=== PATIENT | female | born 1960 | race Caucasian/White ===

== ENCOUNTER 2022-05-14 04:09 | Emergency (ER) | payer OTHER, SELFPAY ==
[2022-05-14 04:14] VITALS: BP 117/87; PULSE 73; RESP 16; TEMP 36.3; O2SAT 100
[2022-05-14 04:16] VITALS: BP 117/87
[2022-05-14 04:29] LABS: Basophils Absolute Auto 0.1 K/mm3 (0.0-0.1); Basophils Percent Auto 0.7 % (0.2-1.2); Eosinophils Absolute Auto 0.1 K/mm3 (0-0.3); Hematocrit 39.6 % (37.0-47.0); Hemoglobin 12.7 g/dL (12.0-15.0); Immature Granulocyte Absolute 0.04 K/mm3 (0.00-0.031); Immature Granulocyte Percent A 0.3 % (0-0.5); Lymphocytes Absolute Auto 0.75 K/mm3 (0.9-3.2); Lymphocytes Percent Auto 6.1 % (18.3-44.2); Mean Corpuscular HGB Conc 32.1 g/dl (32-36); Mean Corpuscular Hemoglobin 27.3 pg (26-34); Mean Platelet Volume 9.4 fl (7.4-10.4); Monocytes Absolute Auto 0.8 K/mm3 (0.1-0.6); Monocytes Percent Auto 6.8 % (2.6-8.5); Neutrophils Absolute Auto 10.4 K/mm3 (1.3-6.7); Neutrophils Percent Auto 85.1 % (45.5-73.1); Platelet Count Result 327 k/mm3 (150-375); Red Blood Count 4.66 M/mm3 (4.2-5.4); Red Cell Distribution Width 20.6 % (11.5-14.5); White Blood Count 12.2 K/mm3 (4.5-10.0)
[2022-05-14 04:32] LABS: Appearance Urine Clear (Clear); Bilirubin Urine 2+ (Negative); Blood Urine Negative (Negative); Color Urine Yellow (Yellow); Glucose Urine UA Negative (Negative); Ketones Urine 4+ mg/dL (Negative); Leukocyte Esterase Ur 2+ LEU/UL (Negative); Nitrate Urine Negative (Negative); Protein Urine 1+ mg/dL (Negative)
[2022-05-14 04:34] LABS: Amorphous Sediment Urine Few; Bacteria Urine Trace /hpf; Mucus Urine Rare /lpf; Squamous Epithelial Cell Urine Rare /hpf (Few)
[2022-05-14 04:35] LABS: Add Urine Microscopic? YES
[2022-05-14 04:38] LABS: Alanine Aminotransferase 38 U/L (6-35); Albumin Level 5.3 g/dL (3.5-5.1); Alkaline Phosphatase 61 U/L (38-126); Anion Gap 10 mmol/L (8-16); Aspartate Amino Transferase 59 U/L (14-36); Bilirubin,Total 0.6 mg/dL (0.2-1.3); Blood Urea Nitrogen 17 mg/dL (7-17); Calcium 10.1 mg/dL (8.4-10.2); Carbon Dioxide 29 mmol/L (22-30); Chloride 98 mmol/L (98-107); Estimated CRCL calculation 64 ml/min; Estimated Glomerular Filt Rate > 60; Glucose 169 mg/dL (65-110); Lipase 62 U/L (23-300); Potassium 3.5 mmol/L (3.4-5.0); Sodium 137 mmol/L (137-145)
[2022-05-14 04:45] VITALS: BP 132/73
--- NOTE | 2022-05-14 04:52 | ED.NAVMDI ---
HPI - Nausea/Vomiting/Diarrhea General Chief complaint: Nausea/Vomiting/Diarrhea Stated complaint: Diarrhea / Vomiting since 2229 Time Seen by Provider: 05/14/22 04:37 History of Present Illness HPI Narrative: 61-year-old female presents emergency room secondary to vomiting, abdominal cramps, and diarrhea. All started after going to [employer] [facility] and eating last night. However her is here and he is not sick. She states she gets abdominal cramps and then afterwards has to go to the bathroom and has vomiting associated with it. Been going on throughout the night. They would do to leave this morning to drive out to [facility] to meet with her daughter. She is had no significant ongoing medical issues. Related Data Allergies Allergy/AdvReac Type Severity Reaction Status Date / Time No Known Allergies Allergy Verified 05/14/22 04:20 Review of Systems Review of Systems: CONSTITUTIONAL: Denies fever, chills, or sweats. EYES: Denies visual changes, redness, or discharge. ENT: Denies rhinorrhea, congestion, sore throat, or otalgia. CARDIOVASCULAR: Denies chest pain, palpitations, or edema. RESPIRATORY: Denies cough or dyspnea. GASTROINTESTINAL: Abdominal cramping with associated vomiting and diarrhea. GENITOURINARY: Denies dysuria or hematuria. SKIN: Denies rash or itching. MUSCULOSKELETAL: Denies back pain, joint pain, or myalgia. NEUROLOGIC: Denies headache, numbness, or weakness. PSYCHIATRIC: Denies anxiety or depression. Exam Narrative: APPEARANCE: Well appearing, no pain or distress, well-nourished. Head Normocephalic and atraumatic. EYES: PERRLA/EOMI, conjunctivae clear. NOSE: Normal with no drainage EARS:TMS clear with Mancuso, with good light reflex. THROAT: Pharynx clear, no exudate. NECK: Supple. No adenopathy, no masses. RESPIRATORY: Airway patent, respirations nonlabored. Clear to auscultation bilaterally, no rales, rhonchi, wheezing. CARDIOVASCULAR: Regular rate and rhythm without murmurs, rubs, or gallops. ABDOMINAL: Soft with hyperactive bowel sounds present nonspecific diffuse tenderness. Musculoskeletal: Moves all extremities. Strength/ROM intact, No edema, No calf tenderness. NEURO: Alert. Cranial nerves II through XII intact. Normal gait. Good coordination. Nonfocal examination. SKIN:: Warm, dry. Normal Color PSYCHIATRIC: Normal affect/mood, normal interaction Course Course Emergency Course: IV was established and given a liter of fluids intravenously. Also given Zofran 4 mg and Bentyl. Reevaluated the patient she is feeling much better. Vital Signs Vital signs: Vital Signs Temperature 97.4 F L 05/14/22 04:14 Pulse Rate 73 05/14/22 04:14 Respiratory Rate 16 05/14/22 04:14 Blood Pressure 117/87 05/14/22 04:14 Pulse Oximetry 100 05/14/22 04:14 Oxygen Delivery Room Air 05/14/22 04:14 Temperature 97.4 F L 05/14/22 04:14 Pulse Rate 62 05/14/22 05:15 Respiratory Rate 18 05/14/22 05:15 Blood Pressure 127/71 05/14/22 05:15 Pulse Oximetry 100 05/14/22 05:15 Oxygen Delivery Room Air 05/14/22 04:14 MDM - Nausea/Vomiting/Diarrhea MDM Narrative Medical decision making narrative: Urinalysis was obtained and even though the patient does not have any obvious signs and symptoms consistent with urinary tract infection there is concern that she does have a urinary tract infection. I discussed this with her and we will go ahead and put her on a 3-day course of antibiotics. They are in the process of leaving to go to [place] and I told her she should be able to make that trip. She just needs to stick with clear liquids for the next 12 to 24 hours then advance her diet back as tolerated. She is given a prescription for Bactrim DS for 3 days. Zofran ODT 4 mg tablets every 6 hours as needed. As well as Levsin 0.125 mg sublingual tablets as needed for abdominal cramps. Lab Data Result diagrams: 05/14/22 04:22 05/14/22 04:22 Labs: Lab Results
[2022-05-14] MEDS: SODIUM CHLORIDE 0.9% IV 1,000 ML 999 ML IV CONT (04:54)
[2022-05-14] MEDS: ONDANSETRON INJ 4 MG/2 ML VIAL IV PUSH (04:55)
[2022-05-14] MEDS: DICYCLOMINE HCL INJ 20 MG/2 ML VIAL IM (04:59)
[2022-05-14 05:01] VITALS: BP 110/54
[2022-05-14 05:15] VITALS: BP 127/71; PULSE 62; RESP 18; O2SAT 100
[2022-05-14 06:04] VITALS: BP 116/72; PULSE 70; RESP 18; O2SAT 100
== END 2022-05-14 06:05 | disposition home or self-care (01) ==
PROVIDERS: Emergency Provider Emergency Medicine
DX: K52.9 Noninfective gastroenteritis and colitis, unspecified (principal); N39.0 Urinary tract infection, site not specified
CPT/HCPCS: 36415; 80053; 81001; 81025; 83690; 85025; 96361; 96372; 96374; 99284; J0500; J2405; J7030

== ENCOUNTER 2025-06-11 19:38 | Emergency (ER) | payer OTHER, SELFPAY ==
--- OUTSIDE RECORDS SUMMARY | 2025-06-11 19:41 | XMS_ITS | Clinical Summary ---
Author Organization [facility] Address [address] [place] [address] Care Team Providers Care Quality Control Expert Name Role Phone Yon Sommer MD Primary Care Provider [phone] Source Comments [facility],non-owned Affiliates and Associated Physician Practices is amultiple site organization consisting of ambulatory clinics and hospital sitesin [place], [place], [place] and [place]. This disclosure is being madepursuant to the Care Everywhere program and may not contain all information available regarding this patient. Last updated 18.[facility] Allergies Active Allergy Reactions Criticality Noted Date Comments Penicillins Other,Rash Medium 03/04/2015 Yeast infection Sulfa Drugs 12/06/2003 Medications * Be aware that medications may not be up to date on this document. Alwaysverify current medications with the patient. fluticasone-lul nterol (BREO ELLIPTA) 200-25 MCG/INH inhalerIndicatio ns:Moderate persistent asthma without complication (HCC) Inhale 1 (one) puff by mouth once daily 30 Each 11 2 Active montelukast (SINGULAIR) 10 MG tablet Take 1 (one) tablet by mouth once daily 90 tablet 3 2 Active albuterol HFA (Proventil; Ventolin; Proair) 108 (90 Base) MCG/ACT inhalerIndicatio ns:Moderate persistent asthma without complication (HCC) USE 2 INHALATIONS EVERY 4 HOURS NEEDED FOR SHORTNESS OF BREATH, WHEEZING OR COUGH. NEED TO BE SEEN (HAS APPT IN MAY) FOR MORE REFILLS. 17 g 4 3 Active Active Problems Problem Noted Date Diagnosed Date Moderate persistent asthma without complication 04/02/2021 Allergic rhinitis 07/03/2015 Overview (04/02/2021): Only bothers in Spring. Flonase then works great. IgE 09/2020: trace sensitivities to trees, molds, grass and also sensitive to ragweed. Tear, knee, medial meniscus 12/24/2011 Immunizations Immunization Administration Dates Next Due INFLUENZA VACCINE, QUADR. (A FLURIA, FLUZONE QUADRIVALENT; 6MO+) (IIV4) 06/25/2019,07/03/2018 Social History Tobacco Use Types Packs/Day Years Used Date Smoking Tobacco: Never Smokeless Tobacco: Never Alcohol Use Standard Drinks/Week Comments Yes 0 (1 standard drink = 0.6 oz pur e alcohol) PHQ-2 Answer Date Recorded PHQ2 TOTAL SCORE 0 10/23/2021 Comments Unknown Sex and Gender Information Value Date Recorded Sex Assigned at Not on file Legal Sex Female 2:04 AM CDT Gender Identity Not on file Sexual Orientation Not on file Last Filed Vital Signs Vital Sign Reading Time Taken Comments Blood Pressure 111/74 04/03/2015 5:45 PM CDT Pulse 68 04/03/2015 5:45 PM CDT Temperature 36.6 C (97.8 F) 03/19/2013 3:05 PM CDT Respiratory Rate 18 04/03/2015 5:45 PM CDT Oxygen Saturation 100% 04/03/2015 5:45 PM CDT Inhaled Oxygen Concentration - - Weight 55.3 kg (122 lb) 10/23/2021 11:50 AM BRAND ACTIVATION MANAGER Height 172.7 cm (5' 8) 10/23/2021 11:50 AM BRAND ACTIVATION MANAGER Body Mass Index 18.55 10/23/2021 11:50 AM BRAND ACTIVATION MANAGER Plan of Treatment Health Maintenance Due Date Last Done Comments COLOGWENDYRD (AGES 45-75) - COLON CA SCREENING 1962 COLON MONITORING 1962 COLONOSCOPY - COLON CA SCREENING 1962 CT COLONOGRAPHY - COLON CA SCREENING 1962 Colorectal Cancer Screening 1962 FIT - COLON CA SCREENING 1962 FLEX SIG - COLON CA SCREENING 1962 HIV SCREENING 1977 HEPATITIS C SCREENING 05/11/1980 DTAP/TDAP/TD VACCINES (1 - Tdap) 1981 PNEUMOCOCCAL VACCINE 50+ (1 of 2 - PCV) 1981 ZOSTER VACCINE (1 of 2) 2012 PAP SMEAR 11/28/2012 11/28/2009, 11/02/2006 Respiratory Syncytial Virus (RSV) Vaccine Pt: or over 60 yrs (1 - Risk 60-74 years 1-dose series) 2022 MAMMOGRAM 09/09/2022 09/09/2020 LIPID TESTING 07/10/2023 07/10/2018, 07/03, 07/09/2016, Additional history exists DEPRESSION SCREENING 10/03/2024 COVID-19 VACCINE ( season) 2025 07/13/2021, 01/06/2021, 12/16/2020 INFLUENZA VACCINE (#1) 2025 9, 07/03/2018, 07/22/2017, Additional history exists HEPATITIS B VACCINE Aged Out No longe r eligible based on patient's age to complete this topic HIB VACCINE Aged Out No longer eligi ble based on patient's age to complete this topic HPV VACCINE Aged Out No longer eligi ble based on patient's age to complete this topic MENINGOCOCCAL (Group B) VACCINE SHARED DECISION-MAKING Aged Out No longer eligible based on patient's age to complete this topic MENINGOCOCCAL GROUPS A/C/Y/W VACCINE Aged Out No longer eligible based on patient's age to complete this topic Procedures Procedure Name Priority Date/Time Associated Diagnosis Comments LIPID PROFILE Routine 07/10/2018 8:59 AM CDT PAP THINPREP ([place]) Routine 11/28/2009 12: 00 AM BRAND ACTIVATION MANAGER from Last 3 Months or Most Recently Relevant to Health Maintenance Results * LIPID PROFILE (07/10/2018 8:59 AM CDT) Cholesterol Total 166 <200 mg/dL 07/10/2018 10:44 AM [facility] HDL 69 >40 mg/dL 07/10/2018 10:44 AM [facility] Comment: ATP III Classification of HDL Cholesterol: <40 mg/dL: Considered a major risk factor. >60 mg/dL: Considered a negative risk factor. LDL Calculated 83 <100 mg/dL 07/10/2018 10:44 AM [facility] Comment: ATP III Classification of LDL Cholesterol: <100 mg/dL: Optimal 100 - 129 mg/dL: Near Optimal/Above Optimal 130 - 159 mg/dL: Borderline High 160 - 189 mg/dL: High >190 mg/dL: Very High Triglycerides 71 <150 mg/dL 07/10/2018 10:44 AM [facility] Comment: ATP III Classification of Triglycerides: <150 mg/dL: Normal 150 - 199 mg/dL: Borderline High 200 - 400 mg/dL: High >500 mg/dL: Very High Blood BLOOD SPECIMEN / Unknown Lab Venipuncture / Unknown 07/10/2018 8:59 AM CDT 07/10/2018 10:21 AM CDT Ordering Provider Unlisted LAB - CHEMISTRY OR DERABLES Final Result Performing Organization Address City/State/[facility] Co de Phone Number [address] [phone] * PAP THINPREP ([place]) (11/28/2009 12:00 AM BRAND ACTIVATION MANAGER) Judicial Assistant Report CASE: [id number] PATIENT: CINDY REYNOLDS Referring Physician: [id number]: JERSON HERNÁNDEZ Signing Pathologist: ROQUEP: DIONE MEZA(ASCP) Signout Date: 12/01/2009 ADEQUACY:Satisfacto ry for evaluation. Transformation zone component present. NARRATIVE DESCRIPTION:Negativ e for intraepithelial lesion or malignancy. 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 [facility] 11/28/2009 12/01/2009 Historical Provider LAB - BODY FLUID ORDERABL ES Final Result [facility] [address] [address] from Last 3 Months or Most Recently Relevant to Health Maintenance Insurance [facility] Care Teams Quality Control Expert Relationship Specialty [place] [id number] [phone] PCP - General Family Medicine 09/28/16
--- OUTSIDE RECORDS SUMMARY | 2025-06-11 19:41 | XMS_ITS | Encounter Summary ---
Author Organization [facility] Address [address] [place] [address] Care Team Providers Care Apiculture Teacher Name Role Phone Yon Sommer MD Primary Care Provider [phone] Reason for Visit * Reason Comments Refill Request Encounter Details Date Type Department Care Team (Late st Contact Info) Description 06/04/2024 Refill [facility] - Allergy [address] [facility] [place] [id number] Teresa Florian MD [address] [place] [address] Refill Request Social History Tobacco Use Types Packs/Day Years [...] on file Sexual Orientation Not on file documented as of this encounter Miscellaneous Notes * Telephone Encounter - Jade Wayne RN - 06/05/2024 2:30 PM CDT Refill Request Cindy Reynolds BOWEN: 10/23/2021 NOV scheduled: Visit date not found LRF: 07/11/2023 Qty Disp: 17g # of refills: 4 Allergies: Allergies Allergen Reactions Penicillins Other and Rash Yeast infection Sulfa Drugs Pended Medication Order: Requested Prescriptions Pending Prescriptions Disp Refills albuterol HFA (Proventil; Ventolin; Proair) 108 (90 Base) MCG/ACT inhaler [Pharmacy Med Name: ALBUTEROL HFA INHALER 8.5GM 90MCG] 17 g 4 Sig: USE 2 INHALATIONS EVERY 4 HOURS NEEDED FOR SHORTNESS OF BREATH, WHEEZING OR COUGH. NEED TO BE SEEN (HAS APPT IN MAY) FOR MORE REFILLS. documented in this encounter Plan of Treatment Not on file documented as of this encounter Visit Diagnoses Diagnosis Moderate persistent asthma without complication (HCC) Unspecified asthma documented in this encounter Care Teams Apiculture Teacher Relationship Specialty [place] [id number] [phone] PCP - General Family Medicine 09/28/16 documented as of this encounter
--- OUTSIDE RECORDS SUMMARY | 2025-06-11 19:41 | XMS_ITS | Encounter Summary ---
Author Organization [facility] Address [address] [facility] [place] [address] Care Team Providers Care Chief Station Engineer Name Role Phone Yon Sommer MD Primary Care Provider [phone] Encounter Details Date Type Department Care Team (Late st Contact Info) Description 07/07/2018 Lab Requisition [facility] [address] [place] [phone] Unlisted, Ordering Provider, Social History Tobacco Use Types Packs/Day Years Used Date Smoking Tobacco: Never Smokeless Tobacco: Never Alcohol Use Standard Drinks/Week Comments Yes 0 (1 standard drink = 0.6 oz pur e alcohol) Comments Unknown Sex and Gender Information Value Date Recorded Sex Assigned at Not on file Legal Sex Female 2:04 AM CDT Gender Identity Not on file Sexual Orientation Not on file documented as of this encounter Plan of Treatment Not on file documented as of this encounter Procedures Procedure Name Priority Date/Time Associated Diagnosis Comments GLUCOSE VITALITY Routine 07/10/2018 8:59 AM CDT HEMOGLOBIN A1C Routine 07/10/2018 8:59 AM CDT LIPID PROFILE Routine 07/10/2018 8:59 AM CDT documented in this encounter Results * HEMOGLOBIN A1C (07/10/2018 8:59 AM CDT) Hemoglobin A1c 5.8 4.4 - 6.3 % 07/10/2018 12:51 PM CDT [facility] Estimated Average Glucose 120 mg/dL 07/10/2018 12:51 PM CDT [facility] Comment: HbA1c Interpretation: Treatment target values recommended by ADA and other clinical organizations should be used to evaluate metabolic control in patients. Treatment Target Values: Normal : < 5.7% Pre-diabetes: 5.7-6.4% Diabetes: Equal to or greater than 6.5% Reference: [place] [employer] Standards of Care in Diabetes -2014 In patients 70 years and older consider HbA1c target range of 7.0-7.5% Reference: Diabetes Mellitus in Older People: Position Statement on behalf of the International Association of Gerontology and Geriatrics (IAGG), the Diabetes Working Alliance Party for Older People (EDWPOP), and the International Task Force of Experts in Diabetes. Niraj Boogie, et al. J [place] [employer] Association. 2012 Test results diagnostic of diabetes should be repeated for confirmation. The Tosoh G8 assay for the measurement of HbA1c is a National Glycohemoglobin Standardization Program (NGSP)certified method. Results for patients with HbE disease should be interpreted with caution as this hemoglobinopathy has been shown to interfere with the Tosoh G8 assay. Blood BLOOD SPECIMEN / Unknown Lab Venipuncture / Unknown 07/10/2018 8:59 AM CDT 07/10/2018 10:21 AM CDT us Ordering Provider Unlisted MD LAB - CHEMISTRY OR DERABLES Final Result [address] [phone] * LIPID PROFILE (07/10/2018 8:59 AM CDT) Cholesterol Total 166 <200 mg/dL 07/10/2018 10:44 AM CDT [facility] HDL 69 >40 mg/dL 07/10/2018 10:44 AM CDT [facility] Comment: ATP III Classification of HDL Cholesterol: <40 mg/dL: Considered a major risk factor. >60 mg/dL: Considered a negative risk factor. LDL Calculated 83 <100 mg/dL 07/10/2018 10:44 AM CDT [facility] Comment: ATP III Classification of LDL Cholesterol: <100 mg/dL: Optimal 100 - 129 mg/dL: Near Optimal/Above Optimal 130 - 159 mg/dL: Borderline High 160 - 189 mg/dL: High >190 mg/dL: Very High Triglycerides 71 <150 mg/dL 07/10/2018 10:44 AM CDT [facility] Comment: ATP III Classification of Triglycerides: <150 mg/dL: Normal 150 - 199 mg/dL: Borderline High 200 - 400 mg/dL: High >500 mg/dL: Very High Blood BLOOD SPECIMEN / Unknown Lab Venipuncture / Unknown 07/10/2018 8:59 AM CDT 07/10/2018 10:21 AM CDT Ordering Provider Unlisted MD LAB - CHEMISTRY OR DERABLES Final Result [address] [phone] * GLUCOSE VITALITY (07/10/2018 8:59 AM CDT) Glucose 85 70 - 115 mg/dL 07/10/2018 10:43 AM CDT [facility] Blood BLOOD SPECIMEN / Unknown Lab Venipuncture / Unknown 07/10/2018 8:59 AM CDT 07/10/2018 10:21 AM CDT Ordering Provider Unlisted MD LAB - CHEMISTRY OR DERABLES Final Result [address] [phone] documented in this encounter Visit Diagnoses Not on filedocumented in this encounter Care Teams Chief Station Engineer Relationship Specialty [place] [address] [phone] PCP - General Family Medicine 09/28/16 documented as of this encounter
[2025-06-11 19:43] VITALS: BP 141/79; PULSE 60; RESP 15; TEMP 36.9; O2SAT 100
[2025-06-11 20:07] LABS: Hematocrit 42.0 % (37.0-47.0); Hemoglobin 13.7 g/dL (12.0-15.0); Immature Granulocyte Percent A 0.4 % (0-0.5); Lymphocytes Absolute Auto 0.52 K/mm3 (0.9-3.2); Mean Corpuscular HGB Conc 32.6 g/dl (32-36); Mean Corpuscular Hemoglobin 30.0 pg (26-34); Mean Corpuscular Volume 92.1 fl (80-100); Nucleated Red Blood Cells Absolute Auto 0.000 K/mm3 (0.0-0.012); Nucleated Red Blood Cells Perc 0.0 % (0.0-0.2); Platelet Count Result 310 k/mm3 (150-375); Red Blood Count 4.56 M/mm3 (4.2-5.4); White Blood Count 11.8 K/mm3 (4.5-10.0)
--- NOTE | 2025-06-11 20:10 | ED_ITS ---
HPI - General Adult General Chief complaint: Nausea/Vomiting/Diarrhea Stated complaint: Vomiting, diarrhea Time Seen by Provider: 06/11/25 19:46 History of Present Illness HPI narrative: This is a 65-year-old female presenting with GI symptoms. Patient was feeling well until approximately 2:00 p.m. this afternoon when she developed nausea vomiting and diarrhea. This is associated with significant stomach cramps. She now feels weak. She has not had any fevers chest pain shortness of breath or urinary symptoms. Patient has had several bouts like this over the last fiber 10 years has had undergone a GI workup. Related Data Allergies Allergy/AdvReac Type Severity Reaction Status Date / Time No Known Allergies Allergy Verified 06/11/25 19:39 Exam 2 Narrative: APPEARANCE: No apparent distress. Well-appearing, stable vitals Head: atraumatic. EYES: EOMI, NOSE: Atraumatic NECK: Trachea midline RESPIRATORY: No increased rate of breathing clear to auscultation CARDIOVASCULAR: RRR, ABDOMINAL: Non-distended soft nontender no guarding rebound MUSCULOSKELETAl: No obvious deformities NEURO: Alert. Moving 4/4 extremities SKIN:: Warm, dry. Normal color PSYCHIATRIC: Normal affect Course Vital Signs Vital signs: Vital Signs Temperature 98.4 F 06/11/25 19:43 Pulse Rate 60 06/11/25 19:43 Respiratory Rate 15 06/11/25 19:43 Blood Pressure 141/79 H 06/11/25 19:43 Pulse Oximetry 100 06/11/25 19:43 Oxygen Delivery Room Air 06/11/25 19:43 Temperature 98.4 F 06/11/25 19:43 Pulse Rate 60 06/11/25 19:43 Respiratory Rate 15 06/11/25 19:43 Blood Pressure 141/79 H 06/11/25 19:43 Pulse Oximetry 100 06/11/25 19:43 Oxygen Delivery Room Air 06/11/25 19:43 Medical Decision Making [facility] Narrative Medical decision making narrative: -Course: 65-year-old female presenting with acute onset of nausea vomiting diarrhea. Vital signs are stable. Abdominal exam is benign. Patient given fluids antiemetics, zofran, Toradol. Labs reviewed within acceptable limits. Patient was re-evaluated is feeling much better. Vital signs stable. She is able to tolerate ice chips. Abdominal exam is benign. Patient will be discharged with Zofran return precautions. -DDX includes but is not limited to: Gastroenteritis, food poisoning, Vital Signs Vital Signs: Vital Signs Temperature 98.4 F 06/11/25 19:43 Pulse Rate 60 06/11/25 19:43 Respiratory Rate 15 06/11/25 19:43 Blood Pressure 141/79 H 06/11/25 19:43 Pulse Oximetry 100 06/11/25 19:43 Oxygen Delivery Room Air 06/11/25 19:43 Temperature 98.4 F 06/11/25 19:43 Pulse Rate 60 06/11/25 19:43 Respiratory Rate 15 06/11/25 19:43 Blood Pressure 141/79 H 06/11/25 19:43 Pulse Oximetry 100 06/11/25 19:43 Oxygen Delivery Room Air 06/11/25 19:43 Lab Data 06/11/25 20:01 06/11/25 20:01 Labs: Lab Results 06/11/25 Range/Units 20:01 WBC Pending RBC Pending Hgb Pending Hct Pending MCV Pending MCH Pending MCHC Pending RDW Pending Plt Count Pending MPV Pending Immature Gran % (Auto) Pending Neut % (Auto) Pending Lymph % (Auto) Pending Jennings % (Auto) Pending Eos % (Auto) Pending Baso % (Auto) Pending Lymph # (Auto) Pending Jennings # (Auto) Pending Eos # (Auto) Pending Baso # (Auto) Pending Abs Immat Gran (auto) Pending Absolute Neuts (auto) Pending Absolute Nucleated RBC Pending Nucleated RBC % Pending Sodium Pending Potassium Pending Chloride Pending Carbon Dioxide Pending Anion Gap Pending BUN Pending Creatinine Pending Estim Creat Clear Calc Pending Estimated GFR Pending Glucose Pending Calcium Pending Total Bilirubin Pending AST Pending ALT Pending Alkaline Phosphatase Pending Total Protein Pending Albumin Pending Lipase Pending Urine Color Pending Urine Appearance Pending Urine pH Pending Ur Specific [place] Pending Urine Protein Pending Urine Glucose (UA) Pending Urine Ketones Pending Ur Blood (Man) Pending Urine Nitrate Pending Urine Bilirubin Pending Urine Urobilinogen Pending Leukocyte Esterase Rfl Pending Discharge Plan Discharge Clinical Impression: Gastroenteritis Patient Disposition: Home Condition: Stable Instructions: Antibiotic Form, Acute Nausea and Vomiting (ED) Additional Instructions: Please use Zofran as needed for vomiting. If you develop severe abdominal pain, persistent nausea vomiting or fevers please return to ED for re-evaluation. Follow-up with your primary care physician 3-5 days. Patient Language: Mauritian Prescriptions: New ondansetron 4 mg tablet,disintegrating 4 mg PO Q8H PRN (Reason: nausea and vomiting) Qty: 30 0RF No Action ondansetron 4 mg tablet,disintegrating 4 mg PO Q6H PRN (Reason: nausea and vomiting) Qty: 20 0RF sulfamethoxazole-trimethoprim [Bactrim DS] 800-160 mg tablet 1 tablet PO Q12H Qty: 6 0RF hyoscyamine sulfate [Levsin/SL] 0.125 mg tablet, sublingual 0.125 mg sublingual QID PRN (Reason: abdominal pain) Qty: 10 0RF Follow-up/Referrals: PHYSICIAN NOT ON STAFF,NONSTAFF [Primary Care Provider]
[2025-06-11 20:13] LABS: Add Urine Microscopic? YES; Appearance Urine Clear (Clear); Glucose Urine UA Negative (Negative); Leukocyte Esterase Ur 2+ LEU/UL (Negative); Nitrate Urine Negative (Negative); Non Pathogenic Casts 0-2; Specific Grav Ur 1.028 (1.001-1.035)
[2025-06-11] MEDS: SODIUM CHLORIDE 0.9% IV 2,000 ML 999 ML IV CONT (20:13)
[2025-06-11] MEDS: FAMOTIDINE 20 MG/2 ML VIAL IV PUSH (20:16)
[2025-06-11] MEDS: ONDANSETRON INJ 4 MG/2 ML VIAL IV PUSH (20:16)
[2025-06-11 20:19] LABS: Alanine Aminotransferase 38 U/L (6-35); Albumin Level 5.2 g/dL (3.5-5.1); Alkaline Phosphatase 58 U/L (38-126); Anion Gap 11 mmol/L (4-12); Aspartate Amino Transferase 55 U/L (14-36); Bilirubin,Total 0.6 mg/dL (0.2-1.3); Blood Urea Nitrogen 18 mg/dL (7-17); Calcium 9.8 mg/dL (8.4-10.2); Carbon Dioxide 23 mmol/L (22-30); Chloride 101 mmol/L (98-107); Estimated CRCL calculation 65 ml/min; Estimated Glomerular Filt Rate > 60; Glucose 120 mg/dL (65-110); Lipase 49 U/L (23-300); Potassium 4.2 mmol/L (3.4-5.0); Sodium 135 mmol/L (137-145); Total Protein 8.2 g/dL (6.3-8.2)
[2025-06-11] MEDS: KETOROLAC 15 MG/ML VIAL (*BKC) IV PUSH (20:31)
--- NOTE | 2025-06-11 20:38 | PC.NURSE ---
This RN assumed care of pt from Merlyn LUCIO at 2035.
[2025-06-11 21:01] VITALS: BP 121/76; PULSE 67; RESP 17; O2SAT 100
[2025-06-11 21:01] LABS: Influenza A QL RT-PCR Negative (Negative); Influenza B QL RT-PCR Negative (Negative); RSV RNA, RT-PCR Negative (Negative); SARS-CoV-2 RNA PCR Negative (Negative)
[2025-06-11 22:01] VITALS: BP 127/72; PULSE 81; RESP 21; O2SAT 100
[2025-06-11 22:37] VITALS: BP 127/72; PULSE 73; RESP 14; O2SAT 100
== END 2025-06-11 22:06 | disposition home or self-care (01) ==
PROVIDERS: Physician Assistant; Emergency Provider Emergency Medicine
DX: K52.9 Noninfective gastroenteritis and colitis, unspecified (principal)
CPT/HCPCS: 36415; 80053; 81001; 83690; 85025; 87086; 87637; 96361; 96374; 96375; 99284; J1885; J2405; J7030